=== PATIENT | female | born 1960 | race Caucasian/White ===

== ENCOUNTER 2021-09-12 15:33 | Emergency (ER) | payer BC ==
[~2021-09-12] VITALS: Ht 165.1 cm; Wt 86.4 kg
[2021-09-12 15:47] VITALS: TEMP 98.4
[2021-09-12] MEDS ORDERED: SYNTHROID 0.10.15 MG PO (17:13)
[2021-09-12] MEDS ORDERED: FLEXERIL 1010 MG/TAB PO (18:11)
[2021-09-12] MEDS ORDERED: MEDROL 4MG DOSPA4 MG PO (18:11)
[2021-09-12 18:20] VITALS: BP 146/66; PULSE 65
== END 2021-09-12 18:22 | disposition home or self-care (01) ==
LOC: COL.ER 15:33
DX: M79.652 Pain in left thigh (principal)